=== PATIENT | male | born 1995 | race Caucasian/White ===

== ENCOUNTER 2023-08-05 21:08 | Emergency (ER) | payer OTHER ==
[~2023-08-05] VITALS: Ht 162.6 cm; Wt 83.0 kg
[2023-08-05 21:25] VITALS: BP 117/77; PULSE 90; RESP 18; TEMP 96.7; O2SAT 100
[2023-08-05 22:05] VITALS: BP 115/65; PULSE 70; RESP 16; TEMP 98
[2023-08-05 22:07] VITALS: O2SAT 98
[2023-08-05 23:10] LABS: AMPHETAMINE, URINE NEGATIVE ng/ml (NEG <=1000); BARBITURATE, URINE NEGATIVE ng/ml (NEG <=200); CANNABINOID, URINE POSITIVE ng/mL (NEG <=50)
[2023-08-05 23:11] LABS: BENZODIAZEPINE, URINE NEGATIVE ng/mL (NEG <=200); COCAINE, URINE NEGATIVE ng/mL (NEG <=300); OPIATE, URINE NEGATIVE ng/mL (NEG <=2000); PHENCYCLIDINE SCREEN,URINE NEGATIVE ng/mL (NEG <=25)
== END 2023-08-05 23:36 | disposition left against medical advice (07) ==
LOC: MED 21:08
DX: R06.4 Hyperventilation (principal); F41.9 Anxiety disorder, unspecified; Z79.899 Other long term (current) drug therapy
CPT/HCPCS: 80305; 93005; 99284